=== PATIENT | male | born 1960 | race Caucasian/White ===

== ENCOUNTER 2021-08-26 12:50 | Emergency (ER) | payer BC, MEDICARE ==
[2021-08-26] MEDS ORDERED: Bupivacaine PF 0.5% 30 ML VIAL ONE (13:45)
[2021-08-26] MEDS ORDERED: Triple Antibiotic Oint 1 GM Packet ONE (14:23)
== END 2021-08-26 15:14 | disposition home or self-care (01) ==
LOC: CSHERS 12:50
DX: S61.101A Unspecified open wound of right thumb with damage to nail, initial encounter (principal); W26.8XXA Contact with other sharp object(s), not elsewhere classified, initial encounter
CPT/HCPCS: 64450; 96372; S0020

== ENCOUNTER 2022-07-01 10:01 | Outpatient (CLI) | payer OTHER | END 2022-07-01 10:02 | disposition home or self-care (01) | LOC: CSHCT 10:01 | PROVIDERS: ATTEND Internal Medicine Cardiovascular Disease | DX: I77.810 Thoracic aortic ectasia (principal); J90 Pleural effusion, not elsewhere classified | CPT/HCPCS: 71275; 82565 ==

== ENCOUNTER 2024-10-05 13:00 | Outpatient (CLI) | payer MEDICARE ==
[~2024-10-05 13:00] MED LIST: Iopamidol 300 61% 100 ML VIAL FS ONE
== END 2024-10-05 13:01 | disposition home or self-care (01) ==
LOC: CSHCT 13:00
PROVIDERS: ATTEND Physician Assistant Medical
DX: K58.0 Irritable bowel syndrome with diarrhea (principal); J90 Pleural effusion, not elsewhere classified
CPT/HCPCS: 36415; 74177; 82565 ×2; Q9967

== ENCOUNTER 2025-03-30 14:42 | Emergency (ER) | payer MEDICARE ==
[2025-03-30 15:24] LABS: #Basophils 0.05 10x3/uL (0.0-0.2); #Eosinophils 0.26 10x3/uL (0.0-0.5); #Monocytes 0.46 10x3/uL (0.0-1.1); #Neutrophils 2.74 10x3/uL (1.5-8.4); %Basophils 1.1 % (0.0-2.0); %Eosinophils 5.5 % (0.0-6.0); %Lymphocytes 24.7 % (18.0-47.0); %Monocytes 9.8 % (0.0-10.0); %Neutrophils 58.5 % (40.0-75.0); Hematocrit 42.1 % (38.8-50.0); Hemoglobin 13.3 g/dL (13.5-17.5); Mean Corpuscular Hemoglobin 28.4 pg (27.0-33.0); Mean Corpuscular Volume 89.8 fL (81.2-95.1); Platelet Count 184 10x3/uL (150-450); Red Blood Cell (RBC) Count 4.69 10x6/uL (4.32-5.72); White Blood Cell (WBC) Count 4.69 10x3/uL (3.5-10.5)
[2025-03-30 16:08] LABS: ALT (SGPT) 45 U/L (Less than 45); AST (SGOT) 37 U/L (11-34); Albumin 4.2 g/dL (3.1-4.5); Alkaline Phosphatase 55 U/L (40-110); Anion Gap 14 mmol/L (10-20); BUN (Urea Nitrogen) 9 mg/dL (8.4-25.7); Bilirubin, Total 0.6 mg/dL (0.3-1.2); Calc. Creatinine Clearance 0 mL/min (70-130); Calcium 8.8 mg/dL (7.8-10.44); Carbon Dioxide 23 mmol/L (23-31); Chloride 108 mmol/L (98-107); Globulin 2.2 g/dL (2.4-3.5); Glucose 121 mg/dL (80-115); Lipase 39 U/L (8-78); Potassium 4.4 mmol/L (3.5-5.1); Sodium 141 mmol/L (136-145)
[2025-03-30 16:16] LABS: Troponin I 0.013 ng/mL (< 0.028)
== END 2025-03-30 17:31 | disposition home or self-care (01) ==
LOC: CSHERS 14:42
DX: S22.31XA Fracture of one rib, right side, initial encounter for closed fracture (principal); S09.90XA Unspecified injury of head, initial encounter; J11.1 Influenza due to unidentified influenza virus with other respiratory manifestations; I48.92 Unspecified atrial flutter; Z79.01 Long term (current) use of anticoagulants; V18.0XXA Pedal cycle driver injured in noncollision transport accident in nontraffic accident, initial encounter
CPT/HCPCS: 36415; 70450; 71260; 72125; 74177; 80053; 83690; 84484; 85025; 87400; 87426; Q9967

== ENCOUNTER 2025-05-21 13:02 | Emergency (ER) | payer MEDICARE ==
[2025-05-21 14:46] LABS: #Basophils 0.05 10x3/uL (0.0-0.2); #Eosinophils 0.28 10x3/uL (0.0-0.5); #Monocytes 0.60 10x3/uL (0.0-1.1); #Neutrophils 4.25 10x3/uL (1.5-8.4); %Basophils 0.8 % (0.0-2.0); %Eosinophils 4.3 % (0.0-6.0); %Lymphocytes 21.0 % (18.0-47.0); %Monocytes 9.1 % (0.0-10.0); %Neutrophils 64.5 % (40.0-75.0); Hematocrit 40.4 % (38.8-50.0); Hemoglobin 12.9 g/dL (13.5-17.5); Mean Corpuscular Hemoglobin 27.9 pg (27.0-33.0); Mean Corpuscular Volume 87.4 fL (81.2-95.1); Platelet Count 200 10x3/uL (150-450); Red Blood Cell (RBC) Count 4.62 10x6/uL (4.32-5.72); White Blood Cell (WBC) Count 6.58 10x3/uL (3.5-10.5)
[2025-05-21 15:09] LABS: ALT (SGPT) 32 U/L (Less than 45); AST (SGOT) 28 U/L (11-34); Albumin 4.3 g/dL (3.1-4.5); Alkaline Phosphatase 75 U/L (40-110); Anion Gap 16 mmol/L (10-20); BUN (Urea Nitrogen) 11 mg/dL (8.4-25.7); Bilirubin, Total 0.7 mg/dL (0.3-1.2); Calc. Creatinine Clearance 0 mL/min (70-130); Calcium 9.6 mg/dL (7.8-10.44); Carbon Dioxide 23 mmol/L (23-31); Chloride 107 mmol/L (98-107); Globulin 2.9 g/dL (2.4-3.5); Glucose 111 mg/dL (80-115); Potassium 4.0 mmol/L (3.5-5.1); Sodium 142 mmol/L (136-145)
[2025-05-21 16:11] LABS: Troponin I 0.467 ng/mL (< 0.028)
[2025-05-21 17:24] LABS: Glucose, Urine (Dipstick) Normal (Negative); Leukocyte Negative (Negative); Protein, Urine (Dipstick) 15 mg/dl (Neg-Trace); Specific Gravity, Urine 1.015 (1.005-1.030)
[2025-05-21 17:39] LABS: CAUTI Indications for Culture Fever or rigors; RBC/HPF 0-3 HPF (0-3)
[2025-05-21 17:41] LABS: Bacteria/HPF 1+ HPF (None Seen); Mucous/LPF 1+ LPF (<2+)
[2025-05-21 17:42] LABS: Urine Culture Reflex No No
== END 2025-05-21 17:58 | disposition home or self-care (01) ==
LOC: CSHERS 13:02
DX: M79.81 Nontraumatic hematoma of soft tissue (principal)
CPT/HCPCS: 71045; 76936; 80053; 81001; 83605; 84484; 85025; 87428; 93005

== ENCOUNTER 2025-06-26 17:59 | Emergency (ER) | payer MEDICARE ==
[2025-06-26] MEDS ORDERED: Lidocaine 1% (PF) 30 ML VIAL ONE (19:56)
[2025-06-26] MEDS ORDERED: Bacitracin 1 PK ONE (21:57)
== END 2025-06-26 22:07 | disposition home or self-care (01) ==
LOC: CSHERS 17:59
DX: S63.286A Dislocation of proximal interphalangeal joint of right little finger, initial encounter (principal); W01.0XXA Fall on same level from slipping, tripping and stumbling without subsequent striking against object, initial encounter
CPT/HCPCS: 26770; 73140; 90715; 99283; J2003

== ENCOUNTER 2025-07-05 21:04 | Emergency (ER) | payer MEDICARE ==
[2025-07-05] MEDS ORDERED: Sulfameth/Trimethoprim DS 800-160mg TAB ONE (21:34)
== END 2025-07-05 22:00 | disposition home or self-care (01) ==
LOC: CSHERS 21:04
DX: S61.216D Laceration without foreign body of right little finger without damage to nail, subsequent encounter (principal); L08.9 Local infection of the skin and subcutaneous tissue, unspecified; X58.XXXD Exposure to other specified factors, subsequent encounter
CPT/HCPCS: 99282